=== PATIENT | male | born 1970 | race Hispanic/Latino ===

== ENCOUNTER 2018-08-09 22:38 | Inpatient (IN) | payer SELFPAY ==
[2018-08-09] MEDS ORDERED: Morphine 4 MG/ML VIAL ONE (22:51)
[2018-08-09] MEDS ORDERED: Ondansetron PF 4 MG/2 ML Vial ONE (22:51)
[2018-08-09 23:09] LABS: #Basophils 0.1 thou/uL (0.0-0.2); #Eosinphils 0.1 thou/uL (0.0-0.7); #Lymphocytes 1.4 thou/uL (1.20-3.40); #Monocytes 0.7 thou/uL (0.11-0.59); #Neutrophils 8.7 thou/uL (1.40-6.50); %Basophils 0.6 % (0.0-1.0); %Eosinophils 0.5 % (0.0-10.0); %Lymphocytes 12.5 % (21.0-51.0); %Monocytes 6.2 % (0.0-10.0); %Neutrophils 80.2 % (42.0-75.0); Hemoglobin 15.1 g/dL (14.0-18.0); Mean Corpuscular HGB CONC 33.9 g/dL (32.0-36.0); Mean Corpuscular Hemoglobin 31.6 pg (27.0-31.0); Mean Corpuscular Volume 93.2 fL (78.0-98.0); Mean Platelet Volume 7.2 fL (7.4-10.4); Platelet Count 329 thou/uL (130-400); RBC Distribution Width 11.3 % (11.5-14.5); Red Blood Cell (RBC) Count 4.78 mill/uL (4.70-6.10); White Blood Cell (WBC) Count 10.9 thou/uL (4.8-10.8)
[2018-08-09] MEDS ORDERED: CEFAZOLIN 1 GM VIAL ONE (23:27)
[2018-08-09 23:31] LABS: ALT (SGPT) 33 U/L (8-55); AST (SGOT) 23 U/L (5-34); Albumin 4.5 g/dL (3.5-5.0); Alkaline Phosphatase 74 U/L (40-150); Anion Gap 14 mmol/L (10-20); BUN (Urea Nitrogen) 13 mg/dL (8.9-20.6); Bilirubin, Total 0.6 mg/dL (0.2-1.2); Calc. Creatinine Clearance 0 mL/min (70-130); Calcium 9.6 mg/dL (7.8-10.44); Carbon Dioxide 25 mmol/L (22-29); Chloride 105 mmol/L (98-107); Estimated GFR-MDRD 69; Globulin 2.9 g/dL (2.4-3.5); Glucose 124 mg/dL (70-105); Potassium 3.8 mmol/L (3.5-5.1); Protein, Total 7.4 g/dL (6.0-8.3); Sodium 140 mmol/L (136-145)
[2018-08-10] MEDS ORDERED: Acetaminophen 325 MG TAB PO PRN (01:26)
[2018-08-10] MEDS ORDERED: Morphine 4 MG/ML VIAL SLOW IVP PRN ×2 (01:27→15:51)
[2018-08-10] MEDS ORDERED: Fentanyl 100 MCG/2 ML VIAL ONE ×2 (13:26→13:49)
[2018-08-10] MEDS ORDERED: Midazolam HCl 2 mg/2 ml Vial ONE (13:26)
[2018-08-10] MEDS ORDERED: Bupivacaine PF 0.5% 30 ML VIAL ONE (13:45)
[2018-08-10] MEDS ORDERED: PROPOFOL 200 MG/20 ML VIAL ONE (14:29)
[2018-08-10] MEDS ORDERED: Dexamethasone 20 MG/5 ML VIAL ONE (14:29)
[2018-08-10] MEDS ORDERED: Ondansetron PF 4 MG/2 ML Vial ONE (14:29)
[2018-08-10] MEDS ORDERED: Sodium Chloride For Inhalation 0.9% 3 ML NEB ONE (14:31)
--- NOTE | 2018-08-10 14:36 | RAD ---
INTRAOPERATIVE FLUOROSCOPY IMAGING GREAT TOE FOOT: INDICATION: Tendon repair. FINDINGS: K wire overlies the great toe with osseous lucency evident at the distal aspect of the great toe prox imal phalanx. Detail is limited on the basis of intraoperative fluoroscopic imaging. IMPRESSION: Intraoperative imaging revealing K wire placement at the great toe. Transcribed Date/Time: 08/10/2018 2:59 PM
[2018-08-10] MEDS ORDERED: Promethazine HCl 25 MG/ML VIAL IM PRN (14:48)
[2018-08-10] MEDS ORDERED: Meperidine HCl/PF 25 MG/ML VIAL SLOW IVP PRN (14:48)
[2018-08-10] MEDS ORDERED: Ondansetron HCl/PF 4 MG/2 ML Vial IVP PRN (14:48)
[2018-08-10] MEDS ORDERED: Ondansetron PF 4 MG/2 ML Vial SLOW IVP PRN (15:52)
[2018-08-10] MEDS ORDERED: HYDROcodone/Acetaminophen 7.5/325 mg Tablet PO PRN (15:52)
[2018-08-10] MEDS ORDERED: Acetaminophen 500 MG TAB PO PRN (15:53)
[2018-08-10] MEDS ORDERED: Ketorolac Tromethamine 30 MG/ML VIAL IVP SCH (18:00)
[2018-08-10 18:49] VITALS: BP 112/78; TEMP 98.3
--- NOTE | 2018-08-10 20:21 | OP ---
DATE OF PROCEDURE: 08/10/2018 PREOPERATIVE DIAGNOSES: 1. Laceration to the dorsum of the left great toe measures 4 cm secondary to chain saw. 2. Laceration of the extensor hallucis longus tendon with open interphalangeal joint. PROCEDURE: Irrigation and debridement of the left great toe, repair of the extensor hallucis longus tendon, pinning of the interphalangeal joint and repair of 4 cm laceration. ANESTHESIA: General. DESCRIPTION OF PROCEDURE: The patient received preoperative IV antibiotics, taken to the operating room, placed in supine position. Satisfactory general anesthesia was performed. Left foot and ankle were sterilely prepped and draped in usual fashion. After exsanguination, tourniquet was raised to 220 mm at the left ankle. The 4 cm laceration that extended into the interphalangeal joint was copiously irrigated. There was some foreign debris, probably representing tree products that were also removed. After the wound was thoroughly cleansed, the joint was placed into slight extension and a 0.062 K-wire was placed through the distal aspect of the toe crossing the IP joint and into the proximal phalanx and this was verified with the fluoroscopy with C-arm. There was approximately 0.5 cm of the extensor hallucis longus tendon still attached to the base of the distal phalanx and was able to repair the extensor hallucis longus tendon back to itself using 2-0 FiberWire in a modified Rylee type suture and then also additional [id number] suture. This provided good repair of the tendon. The 4 cm laceration was then repaired using 3-0 Rapide. The wound was then infiltrated with total of 10 mL of 0.5% Marcaine plain. Sterile dressing was applied. The patient was placed in a postoperative shoe. Tourniquet was released. The patient was awakened, extubated, and transferred to recovery room in stable condition. ESTIMATED BLOOD LOSS: None. COMPLICATIONS: None. TOURNIQUET TIME: 30 minutes. DISCHARGE MEDICATION: 1. Bactrim DS one twice a day #20. 2. Tylenol No.4 one every 4-6 hours as needed for pain, #40. INSTRUCTIONS: Follow up in my office in 6 days. The patient will be provided with crutches. He can partially weightbear on the left foot, mainly weightbearing on the heel. Job ID: [id number]
--- NOTE | 2018-08-12 09:29 | HP ---
HISTORY OF PRESENT ILLNESS: Mr. Lindsey is a 48-year-old male who was working with a chainsaw. The chainsaw slipped off the tree and cut through toe of his boot. The patient had immediate pain in the dorsum of the left great toe. He was initially seen in the emergency room in [place], where x-ray showed fracture of the distal aspect of the proximal phalanx. The patient was noted to have laceration of the extensor hallucis longus tendon. He was transferred here for more definitive treatment. The patient was given IV antibiotics. ALLERGIES: NONE. CURRENT MEDICATIONS: None. PAST SURGICAL HISTORY: Status post appendectomy. PHYSICAL EXAMINATION: VITAL SIGNS: The patient is afebrile. Vital signs are stable. HEENT: Unremarkable. LUNGS: Clear bilaterally. HEART: Regular rate and rhythm. ABDOMEN: Soft and nontender. Bowel sounds positive. : Not done. EXTREMITIES: Unremarkable except for the left foot, there is a slightly oblique laceration at the distal aspect of the proximal phalanx. The extensor tendon is noted in the wound. The patient has flexion of the IP joint of approximately 30 degrees and unable to actively extend the toe. He has good capillary refill and good sensation in plantar aspect of the foot. IMPRESSION: Laceration over the dorsum of the left great toe with laceration of the extensor hallucis longus tendon and nondisplaced fracture through the distal aspect of the proximal phalanx. PLAN: The patient will be taken to the operating room for irrigation and debridement of the left great toe, repair of the extensor hallucis longus tendon. We may need to pin the IP joint with K-wire to allow the tendon to heal. The patient's and family's questions were answered. Agreed with procedure. Job ID: [id number]
== END 2018-08-10 18:51 | disposition home or self-care (01) | DRG 502 ==
LOC: ERS 22:38 → SURG B 08-10 00:54
PROVIDERS: ADMIT Orthopaedic Surgery; ATTEND Orthopaedic Surgery
PROC: 0LQW0ZZ Repair Left Foot Tendon, Open Approach (ICD-10-PCS; principal; 2018-08-10)
PROC: 0SH Lower Joints, Insertion (ICD-10-PCS; 2018-08-10)
DX: S96.122A Laceration of muscle and tendon of long extensor muscle of toe at ankle and foot level, left foot, initial encounter (principal); S91.112A Laceration without foreign body of left great toe without damage to nail, initial encounter; W31.2XXA Contact with powered woodworking and forming machines, initial encounter
CPT/HCPCS: 36415; 76000; J0131; J0690; J1885; J2250; J2270; J2405; J3010; S0020